=== PATIENT | male | born 1965 | race American Indian/Alaskan Native ===

== ENCOUNTER 2020-08-15 13:27 | Inpatient (IN) | payer OTHER ==
--- NOTE | 2020-08-15 14:00 | Emergency Department Report ---
HPI - General Time Seen by Provider: 08/15/20 13:49 - HPI HPI: This is a 55-year-old male who presents to the emergency department via EMS from a local store after he was witnessed to have some seizure-like activity by a bystander. At the time of my initial examination the patient appears awake, and pleasantly confused at AAO x 1 to person only. He says that the year is 2001. The patient was admitted here about 3 years ago for seizures, hyperammonemia, delirium tremens, encephalopathy. Records also show that the patient has a history of HIV. The patient admits to drinking alcohol and smoking cigarettes "sometimes", but he denies any illicit drug use. He was not given anything for his symptoms by EMS in route. The patient is a poor historian. ED Past Medical Hx - Past Medical History Hx Hypertension: Yes Hx Congestive Heart Failure: No Hx Diabetes: No Hx Seizures: Yes Hx Asthma: No Hx COPD: No Hx HIV: Yes - Surgical History Additional Surgical History: Unknown - Social History Smoking Status: Current Every Day Smoker - Medications Home Medications: Home Medications Medication Instructions Recorded Confirmed Last Taken Type Folic Acid 1 mg PO DAILY #30 tablet 08/16/20 Unknown Rx Multivitamin 1 each PO DAILY #30 tablet 08/16/20 Unknown Rx Thiamine [Vitamin B-1] 100 mg PO QDAY #30 tablet 08/16/20 Unknown Rx levETIRAcetam [Keppra TAB] 500 mg PO BID #60 tablet 08/16/20 Unknown Rx ED Review of Systems ROS: Stated complaint: SEIZURE Other details as noted in HPI Comment: Unobtainable due to pts medical conditions Physical Exam - Physical Exam Physical Exam: GENERAL: The patient is disheveled and confused. HENT: Normocephalic. Atraumatic. Patient has moist mucous membranes. EYES: Extraocular motions are intact. Pupils equal reactive to light bilaterally. NECK: Supple. Trachea is midline. CHEST/LUNGS: Clear to auscultation. There is no respiratory distress noted. HEART/CARDIOVASCULAR: Regular. There is no tachycardia. There is no murmur. ABDOMEN: Abdomen is soft, nontender. Patient has normal bowel sounds. There is no abdominal distention. SKIN: Skin is warm and dry. NEURO: The patient is awake and cooperative, but confused. AAO x1 to person, but not place or time. No facial asymmetry. Cranial nerves II through XII grossly intact. MUSCULOSKELETAL: There is no tenderness or deformity. There is no limitation range of motion. ED Course - Reevaluation(s) Reevaluation #1: 08/15/20 15:39 The patient just defecated in a urinal. He is seen talking to himself. He maddison ins confused at AAO x1. The patient's labs shows moderate hyponatremia with a sodium of 122, significant hypomagnesemia with a level of 1. He will be given a banana bag that is in normal saline to help with the hyponatremia. I have ordered 2 g of magnesium for transfusion. The patient's blood alcohol level is 0.04. With the previous witnessed seizure-like activity, and his history of alcohol dependence and previous DTs, the patient has been started on CIWA protocol. I am waiting for a CT scan of the head to be completed. ED Medical Decision Making - Lab Data Result diagrams: 08/15/20 14:14 08/15/20 14:14 Lab Results 08/15/20 08/15/20 08/15/20 Range/Units 14:14 14:14 14:14 WBC 3.3 L (4.5-11.0) K/mm3 RBC 3.83 (3.65-5.03) M/mm3 Hgb 11.9 (11.8-15.2) gm/dl Hct 33.9 L (35.5-45.6) % MCV 89 (84-94) fl MCH 31 (28-32) pg MCHC 35 H (32-34) % RDW 13.0 L (13.2-15.2) % Plt Count 137 L (140-440) K/mm3 Lymph % (Auto) 24.2 (13.4-35.0) % [place] % (Auto) 10.1 H (0.0-7.3) % Eos % (Auto) 0.6 (0.0-4.3) % Baso % (Auto) 0.9 (0.0-1.8) % Lymph # (Auto) 0.8 L (1.2-5.4) K/mm3 [place] # (Auto) 0.3 (0.0-0.8) K/mm3 Eos # (Auto) 0.0 (0.0-0.4) K/mm3 Baso # (Auto) 0.0 (0.0-0.1) K/mm3 Seg Neutrophils % 64.2 (40.0-70.0) % Seg Neutrophils # 2.1 (1.8-7.7) K/mm3 Sodium 122 L (137-145) mmol/L Potassium 3.9 (3.6-5.0) mmol/L Chloride 83.0 L (98-107) mmol/L Carbon Dioxide 18 L (22-30) mmol/L Anion Gap 25 mmol/L BUN 8 L (9-20) mg/dL Creatinine 1.0 (0.8-1.3) mg/dL Estimated GFR > 60 ml/min BUN/Creatinine Ratio 8 % Glucose 100 (75-100) mg/dL Calcium 9.4 (8.4-10.2) mg/dL Magnesium (1.7-2.3) mg/dL Total Bilirubin 0.80 (0.1-1.2) mg/dL AST 128 H (5-40) units/L ALT 64 H (7-56) units/L Alkaline Phosphatase 74 (35-129) units/L Ammonia 51.0 (25-60) umol/L Troponin T < 0.010 (0.00-0.029) ng/mL Total Protein 8.4 H (6.3-8.2) g/dL Albumin 4.4 (3.9-5) g/dL Albumin/Globulin Ratio 1.1 % TSH (0.270-4.200) mlU/mL Urine Color (Yellow) Urine Turbidity (Clear) Urine pH (5.0-7.0) Ur Specific [place] (1.003-1.030) Urine Protein (Negative) mg/dL Urine Glucose (UA) (Negative) mg/dL Urine Ketones (Negative) mg/dL Urine Blood (Negative) Urine Nitrite (Negative) Urine Bilirubin (Negative) Urine Urobilinogen (<2.0) mg/dL Ur Leukocyte Esterase (Negative) Urine WBC (Auto) (0.0-6.0) /HPF Urine RBC (Auto) (0.0-6.0) /HPF U Epithel Cells (Auto) (0-13.0) /HPF Urine Mucus /HPF Urine Opiates Screen Urine Methadone Screen Ur Barbiturates Screen Ur Phencyclidine Scrn Ur Amphetamines Screen U Benzodiazepines Scrn Urine Cocaine Screen U Marijuana (THC) Screen Drugs of Abuse Note Plasma/Serum Alcohol (0-0.07) % 08/15/20 08/15/20 08/15/20 Range/Units 14:14 14:14 14:48 WBC (4.5-11.0) K/mm3 RBC (3.65-5.03) M/mm3 Hgb (11.8-15.2) gm/dl Hct (35.5-45.6) % MCV (84-94) fl MCH (28-32) pg MCHC (32-34) % RDW (13.2-15.2) % Plt Count (140-440) K/mm3 Lymph % (Auto) (13.4-35.0) % [place] % (Auto) (0.0-7.3) % Eos % (Auto) (0.0-4.3) % Baso % (Auto) (0.0-1.8) % Lymph # (Auto) (1.2-5.4) K/mm3 [place] # (Auto) (0.0-0.8) K/mm3 Eos # (Auto) (0.0-0.4) K/mm3 Baso # (Auto) (0.0-0.1) K/mm3 Seg Neutrophils % (40.0-70.0) % Seg Neutrophils # (1.8-7.7) K/mm3 Sodium (137-145) mmol/L Potassium (3.6-5.0) mmol/L Chloride (98-107) mmol/L Carbon Dioxide (22-30) mmol/L Anion Gap mmol/L BUN (9-20) mg/dL Creatinine (0.8-1.3) mg/dL Estimated GFR ml/min BUN/Creatinine Ratio % Glucose (75-100) mg/dL Calcium (8.4-10.2) mg/dL Magnesium (1.7-2.3) mg/dL Total Bilirubin (0.1-1.2) mg/dL AST (5-40) units/L ALT (7-56) units/L Alkaline Phosphatase (35-129) units/L Ammonia (25-60) umol/L Troponin T (0.00-0.029) ng/mL Total Protein (6.3-8.2) g/dL Albumin (3.9-5) g/dL Albumin/Globulin Ratio % TSH 1.350 (0.270-4.200) mlU/mL Urine Color Yellow (Yellow) Urine Turbidity Clear (Clear) Urine pH 5.0 (5.0-7.0) Ur Specific [place] 1.015 (1.003-1.030) Urine Protein 100 mg/dl (Negative) mg/dL Urine Glucose (UA) 50 (Negative) mg/dL Urine Ketones Neg (Negative) mg/dL Urine Blood Mod (Negative) Urine Nitrite Neg (Negative) Urine Bilirubin Neg (Negative) Urine Urobilinogen 4.0 (<2.0) mg/dL Ur Leukocyte Esterase Neg (Negative) Urine WBC (Auto) 1.0 (0.0-6.0) /HPF Urine RBC (Auto) 3.0 (0.0-6.0) /HPF U Epithel Cells (Auto) < 1.0 (0-13.0) /HPF Urine Mucus Few /HPF Urine Opiates Screen Urine Methadone Screen Ur Barbiturates Screen Ur Phencyclidine Scrn Ur Amphetamines Screen U Benzodiazepines Scrn Urine Cocaine Screen U Marijuana (THC) Screen Drugs of Abuse Note Plasma/Serum Alcohol 0.04 (0-0.07) % 08/15/20 08/15/20 Range/Units 14:48 15:10 WBC (4.5-11.0) K/mm3 RBC (3.65-5.03) M/mm3 Hgb (11.8-15.2) gm/dl Hct (35.5-45.6) % MCV (84-94) fl MCH (28-32) pg MCHC (32-34) % RDW (13.2-15.2) % Plt Count (140-440) K/mm3 Lymph % (Auto) (13.4-35.0) % [place] % (Auto) (0.0-7.3) % Eos % (Auto) (0.0-4.3) % Baso % (Auto) (0.0-1.8) % Lymph # (Auto) (1.2-5.4) K/mm3 [place] # (Auto) (0.0-0.8) K/mm3 Eos # (Auto) (0.0-0.4) K/mm3 Baso # (Auto) (0.0-0.1) K/mm3 Seg Neutrophils % (40.0-70.0) % Seg Neutrophils # (1.8-7.7) K/mm3 Sodium (137-145) mmol/L Potassium (3.6-5.0) mmol/L Chloride (98-107) mmol/L Carbon Dioxide (22-30) mmol/L Anion Gap mmol/L BUN (9-20) mg/dL Creatinine (0.8-1.3) mg/dL Estimated GFR ml/min BUN/Creatinine Ratio % Glucose (75-100) mg/dL Calcium (8.4-10.2) mg/dL Magnesium 1.00 L (1.7-2.3) mg/dL Total Bilirubin (0.1-1.2) mg/dL AST (5-40) units/L ALT (7-56) units/L Alkaline Phosphatase (35-129) units/L Ammonia (25-60) umol/L Troponin T (0.00-0.029) ng/mL Total Protein (6.3-8.2) g/dL Albumin (3.9-5) g/dL Albumin/Globulin Ratio % TSH (0.270-4.200) mlU/mL Urine Color (Yellow) Urine Turbidity (Clear) Urine pH (5.0-7.0) Ur Specific [place] (1.003-1.030) Urine Protein (Negative) mg/dL Urine Glucose (UA) (Negative) mg/dL Urine Ketones (Negative) mg/dL Urine Blood (Negative) Urine Nitrite (Negative) Urine Bilirubin (Negative) Urine Urobilinogen (<2.0) mg/dL Ur Leukocyte Esterase (Negative) Urine WBC (Auto) (0.0-6.0) /HPF Urine RBC (Auto) (0.0-6.0) /HPF U Epithel Cells (Auto) (0-13.0) /HPF Urine Mucus /HPF Urine Opiates Screen Negative Urine Methadone Screen Negative Ur Barbiturates Screen Negative Ur Phencyclidine Scrn Negative Ur Amphetamines Screen Negative U Benzodiazepines Scrn Negative Urine Cocaine Screen Negative U Marijuana (THC) Screen Negative Drugs of Abuse Note Disclamer Plasma/Serum Alcohol (0-0.07) % - EKG Data -: EKG Interpreted by [place] EKG shows normal: sinus rhythm, axis, intervals, QRS complexes, ST-T waves Rate: normal - EKG Data When compared to previous EKG there are: previous EKG unavailable Interpretation: normal EKG, unchanged when compared t (01/25/18) - Radiology Data Radiology results: report reviewed CT head/brain wo con INDICATION / CLINICAL INFORMATION: 55 years Male; Altered mental status. TECHNIQUE: Routine CT head without contrast. All CT scans at this location are performed using CT dose reduction for ALARA by means of automated exposure control. COMPARISON: The study is compared to the previous CT of 01/25/2018. FINDINGS: BRAIN / INTRACRANIAL CONTENTS: The motion significantly degrades the image quality. However, there appears be continued encephalomalacia involving anterior left frontal lobe likely related to previous infarct or t rauma. There otherwise appears to be mild cerebral white matter disease most consistent with microvascular angiopathy. There is also continued mild central atrophy with associated prominence of the ventricular system. There is no gross CT evidence of acute intracranial hemorrhage or significant midline shift. ORBITS: No significant abnormality of visualized orbits. SINUSES / MASTOIDS: The visualized paranasal sinuses are pneumatized. CRANIOCERVICAL JUNCTION: There is persistent a linear lucency coursing along the vertex of the calvarium and along the left paramedian frontal lobe without interval change. ADDITIONAL FINDINGS: None. IMPRESSION: 1. The study is limited by motion. However, there is continued microvascular angiopathy and cerebral atrophy without gross CT evidence of acute intracranial hemorrhage. - Medical Decision Making This patient presents to the emergency department via EMS after he was found postictal at a local store and the store owners or a bystander witnessed some seizure-like activity. It is unknown whether the patient has a true seizure history or if the seizures are related to alcohol withdrawal, as the patient presented in a similar fashion 3 years ago. The patient is currently AAO x1 to name only. He does follow commands. Cranial nerves II through XII grossly intact. The patient is seen moving all extremities. The patient is calm and pleasant and has no current complaints. EKG did not have any morphology consistent with ST elevation myocardial infarction. Labs shows hyponatremia with a sodium level of 122, hypomagnesemia with a level of 1, and some transaminitis consistent with his alcohol use history. This patient will be signed out to my colleague, Dr. Schroeder, to follow-up on the CT scan results of the head. I did present the case to the admitting hospitalist, Dr. Chavez. Dr Schroeder will contact him or will assist with disposition depending on the CT head results. Critical Care Time: No Critical care attestation.: If time is entered above; I have spent that time in minutes in the direct care of this critically ill patient, excluding procedure time. ED Disposition Clinical Impression: Transaminitis, Hypomagnesemia, Encephalopathy, Alcohol withdrawal seizure with complication Disposition: OP ADMIT IP TO THIS HOSP Is pt being admited?: Yes Condition: Serious Time of Disposition: 15:57
[2020-08-15 14:47] LABS: Basophils % (Auto) 0.9 % (0.0-1.8); Eosinophils % (Auto) 0.6 % (0.0-4.3); Hematocrit 33.9 % (35.5-45.6); Hemoglobin 11.9 gm/dl (11.8-15.2); Lymphocytes # (Auto) 0.8 K/mm3 (1.2-5.4); Lymphocytes % (Auto) 24.2 % (13.4-35.0); Mean Corpuscular HGB Conc 35 % (32-34); Mean Corpuscular Volume 89 fl (84-94); Monocytes # (Auto) 0.3 K/mm3 (0.0-0.8); Monocytes % (Auto) 10.1 % (0.0-7.3); Platelet Count 137 K/mm3 (140-440); Red Blood Count 3.83 M/mm3 (3.65-5.03)
[2020-08-15 14:55] LABS: Bilirubin,Urine NEG (Negative); Blood,Urine MOD (Negative); Color,Urine Yellow (Yellow); Mucus,Urine FEW /HPF
[2020-08-15 14:56] LABS: Alanine Aminotransferase 64 units/L (7-56); Albumin 4.4 g/dL (3.9-5); BUN/Creatinine Ratio 8; Blood Urea Nitrogen 8 mg/dL (9-20); Calcium 9.4 mg/dL (8.4-10.2); Hemolysis Index 10
[2020-08-15 15:03] LABS: Amphetamine Screen,Urine Negative; Benzodiazepines Screen,Urine Negative; Cannabinoid Screen,Urine Negative; Cocaine Screen,Urine Negative; Methadone Screen,Urine Negative; Opiate Screen,Urine Negative
[2020-08-15] MEDS ORDERED: MAGNESIUM SULFATE 2 GM/50 ML BAG IV ONE (15:26)
[2020-08-15] MEDS ORDERED: LORazepam 2 MG/ML VIAL IV PRN ×2 (15:28)
[2020-08-15] MEDS ORDERED: THIAMINE 100 MG, FOLIC ACID 1 MG, MULTIPLE VITAMIN INJ, ADULT 10 ML in SODIUM CHLORIDE ... IV ONE (15:58)
[2020-08-15] MEDS ORDERED: LORazepam 2 MG/ML VIAL IV ONE (16:15)
[2020-08-15] MEDS ORDERED: levETIRAcetam 1000 MG/NS 0.75% 1,000 MG/100 ML BAG IV ONE (16:15)
--- NOTE | 2020-08-15 17:46 | Cat Scan Report ---
CT head/brain wo con INDICATION / CLINICAL INFORMATION: 55 years Male; Altered mental status. TECHNIQUE: Routine CT head without contrast. All CT scans at this location are performed using CT dos e reduction for ALARA by means of automated exposure control. COMPARISON: The study is compared to the previous CT of 01/25/2018. FINDINGS: BRAIN / INTRACRANIAL CONTENTS: The motion significantly degrades the image quality. However, there ap pears be continued encephalomalacia involving anterior left frontal lobe likely related to previous i nfarct or trauma. There otherwise appears to be mild cerebral white matter disease most consistent wi th microvascular angiopathy. There is also continued mild central atrophy with associated prominence of the ventricular system. There is no gross CT evidence of acute intracranial hemorrhage or signific ant midline shift. ORBITS: No significant abnormality of visualized orbits. SINUSES / MASTOIDS: The visualized paranasal sinuses are pneumatized. CRANIOCERVICAL JUNCTION: There is persistent a linear lucency coursing along the vertex of the calvar ium and along the left paramedian frontal lobe without interval change. ADDITIONAL FINDINGS: None. IMPRESSION: 1. The study is limited by motion. However, there is continued microvascular angiopathy and cerebral atrophy without gross CT evidence of acute intracranial hemorrhage. Signer Name: Juice Molina MD Signed: 08/15/2020 5:42 PM Workstation Name: [id number]
[2020-08-15] MEDS ORDERED: SODIUM CHLORIDE 0.9% 1000 ML 1,000 ML IV ONE (18:12)
[2020-08-15] MEDS ORDERED: chlordiazePOXIDE 25 MG CAP PO ONE (18:48)
--- NOTE | 2020-08-15 19:07 | Event Note ---
Date: 08/15/[address] Lucero patient is pending CT scan of head and reevaluation by hospitalist for admission. Spoke with the morning hospitalist and he says patient can be stable to go if patient is able to walk. However patient walks with that antalgic gait and had another seizure we will place patient on [facility] protocol and will admit to Dr. Zhao Spoke with Dr. Zhao Patient will be admitted to the hosptal
[2020-08-15] MEDS ORDERED: MULTIPLE VITAMIN INJ, ADULT 10 ML, THIAMINE 100 MG, FOLIC ACID 1 MG in SODIUM CHLORIDE ... IV SCH (22:00)
[2020-08-15] MEDS ORDERED: ONDANSETRON 4 MG/2 ML INJ IV PRN (22:15)
[2020-08-15] MEDS ORDERED: ACETAMINOPHEN 325 MG TAB PO PRN (22:15)
[2020-08-15] MEDS ORDERED: D5W/0.45% NACL 1,000 ML IV SCH (23:00)
[2020-08-15] MEDS ORDERED: MAGNESIUM HYDROXIDE (MOM) ORAL LIQD UDC PO PRN (23:04)
[2020-08-15] MEDS ORDERED: MORPHINE 2 MG/1 ML INJ IV PRN (23:04)
--- NOTE | 2020-08-15 23:14 | History and Physical Report ---
History of Present Illness Date of examination: 08/15/20 Date of admission: 08/15/2020 Chief complaint: Altered Mental Status History of present illness: 55-year-old male brought into the emergency room today by EMS having been found to be having some seizure-like activity at a local store by a bystander. Most of the history was gotten from the ER staff as patient appeared confused and was unable to give a very cohesive history. His only alert and oriented x1. Records however indicates that he was admitted about 3 years ago for seizure activity, hyperammonemia, delirium tremens and encephalopathy. He also has known history of HIV with unknown CD4 count. Patient has known history of alcoholic tobacco abuse. Work-up in the emergency room today reveals a sodium of 122, is magnesium of 1.0. Urinalysis and toxicology screen were unremarkable. Serum alcohol level was 0.04 CT of the head reveals microvascular angiopathy and cerebral atrophy without any gross evidence of acute intracranial hemorrhage. He was found to have unsteady gait in the ER and was placed on seizure precautions and alcohol withdrawals precautions. Patient is being admitted with altered mental status, hyponatremia, seizure-like activity and hypomagnesemia. Past History Past Medical History: HIV/AIDS, hypertension, seizures Past Surgical History: No surgical history Social history: smoking (Current daily smoker) Family history: no significant family history Medications and Allergies Allergies Allergy/AdvReac Type Severity Reaction Status Date / Time Fish Allergy Unknown Unknown Uncoded 08/24/17 16:16 Home Medications Medication Instructions Recorded Confirmed Last Taken Type No Known Home Medications [No 01/25/18 01/25/18 Unknown History Reported Home Medications] Active Meds: Active Medications Acetaminophen (Acetaminophen 325 Mg Tab) 650 mg PO Q4H PRN PRN Reason: Pain MILD(1-3)/Fever >100.5/TUBBS Enoxaparin Sodium (Enoxaparin 40 Mg/0.4 Ml Inj) 40 mg SUB-Q DAILY NORM; Protocol Stop: 08/18/20 23:59 Dextrose/Sodium Chloride (D5/0.45ns) 1,000 mls @ 100 mls/hr IV DIRECT NORM Sodium Chloride (Nacl 0.9% 1000 Ml) 1,000 mls @ 150 mls/hr IV DIRECT NORM Lorazepam (Lorazepam 2 Mg/Ml Vial) 2 mg IV Q1HR PRN PRN Reason: CIWA-Ar 8-15 Lorazepam (Lorazepam 2 Mg/Ml Vial) 4 mg IV Q1HR PRN PRN Reason: CIWA-Ar 16-25 Magnesium Hydroxide (Magnesium Hydroxide (Mom) Oral Liqd Udc) 30 ml PO Q4H PRN PRN Reason: Constipation Morphine Sulfate (Morphine 2 Mg/1 Ml Inj) 2 mg IV Q4H PRN PRN Reason: Pain, Moderate (4-6) Ondansetron HCl (Ondansetron 4 Mg/2 Ml Inj) 4 mg IV Q8H PRN PRN Reason: Nausea And Vomiting Sodium Chloride (Sodium Chloride 0.9% 10 Ml Flush Syringe) 10 ml IV BID NORM Sodium Chloride (Sodium Chloride 0.9% 10 Ml Flush Syringe) 10 ml IV PRN PRN PRN Reason: LINE FLUSH Sodium Chloride (Sodium Chloride 0.9% 10 Ml Flush Syringe) 10 ml IV BID NORM Sodium Chloride (Sodium Chloride 0.9% 10 Ml Flush Syringe) 10 ml IV PRN PRN PRN Reason: LINE FLUSH Review of Systems ROS unobtainable: due to mental status Exam - Constitutional Vitals: Temp Pulse Resp BP Pulse Ox 98.6 F 110 H 18 151/103 98 08/15/20 13:55 08/15/20 17:45 08/15/20 17:45 08/15/20 17:45 08/15/20 17:45 General appearance: Present: no acute distress, well-nourished - EENT Eyes: Present: PERRL, EOM intact ENT: hearing intact, clear oral mucosa, dentition normal - Neck Neck: Present: supple, normal ROM - Respiratory Respiratory effort: normal Respiratory: bilateral: CTA - Cardiovascular Rhythm: regular Heart Sounds: Present: S1 & S2. Absent: gallop, systolic murmur, diastolic murmur, rub, click - Extremities Extremities: no ischemia, pulses intact, pulses symmetrical, No edema, normal temperature, normal color, Full ROM Peripheral Pulses: within normal limits - Abdominal General gastrointestinal: Present: soft, non-tender, non-distended, normal bowel sounds. Absent: mass - Integumentary Integumentary: Present: clear, warm, dry. Absent: rash - Musculoskeletal Musculoskeletal: strength equal bilaterally - Psychiatric Psychiatric: cooperative, other (Confused) - Neurologic Neurologic: CNII-XII intact, moves all extremities HEART Score - HEART Score Troponin: Troponin T < 0.010 ng/mL (0.00-0.029) 08/15/20 14:14 Results - Labs CBC & Chem 7: 08/15/20 14:14 08/15/20 14:14 Labs: Abnormal lab results 08/15/20 08/15/20 08/15/20 Range/Units 14:14 14:14 15:10 WBC 3.3 L (4.5-11.0) K/mm3 Hct 33.9 L (35.5-45.6) % MCHC 35 H (32-34) % RDW 13.0 L (13.2-15.2) % Plt Count 137 L (140-440) K/mm3 [place] % (Auto) 10.1 H (0.0-7.3) % Lymph # (Auto) 0.8 L (1.2-5.4) K/mm3 Sodium 122 L (137-145) mmol/L Chloride 83.0 L (98-107) mmol/L Carbon Dioxide 18 L (22-30) mmol/L BUN 8 L (9-20) mg/dL Magnesium 1.00 L (1.7-2.3) mg/dL AST 128 H (5-40) units/L ALT 64 H (7-56) units/L Total Protein 8.4 H (6.3-8.2) g/dL Assessment and Plan - Patient Problems (1) Encephalopathy Current Visit: Yes Status: Acute Plan to address problem: Possibly secondary to multiple factors including post ictal state, hyponatremia and possible alcohol withdrawal. Will monitor mental status. Patient placed on IV fluid, alcohol withdrawal protocol and seizure precautions. (2) Hypomagnesemia Current Visit: Yes Status: Acute Plan to address problem: Possibly secondary to history of alcohol dependence. Magnesium to be repleted. Will monitor chemistry. (3) Generalized seizure Current Visit: No Status: Acute Plan to address problem: Possibly secondary to history of alcohol abuse. Patient placed on seizure precautions Placed on IV Keppra. Consult to neurology requested (4) EtOH dependence Current Visit: No Status: Chronic Qualifiers: Substance use status: in withdrawal Plan to address problem: Patient placed on alcohol withdrawal precautions Will also place on multivitamins including thiamine. (5) HIV (human immunodeficiency virus infection) Current Visit: No Status: Chronic Plan to address problem: CD4 count unknown. Will encourage follow-up with infectious disease. (6) DVT prophylaxis Current Visit: No Status: Acute Plan to address problem: Patient placed on subcutaneous Lovenox (7) Full code status Current Visit: Yes Status: Acute
[2020-08-15] MEDS ORDERED: SODIUM CHLORIDE 0.9% 1000 ML 1,000 ML IV SCH ×2 (23:15→23:30)
[2020-08-16 06:19] VITALS: BP 149/93
--- NOTE | 2020-08-16 08:14 | Discharge Summary ---
Providers - Providers Date of Admission: 08/15/20 23:04 Attending physician: ROSANGELA MORRIS MD 08/15/20 23:05 Consult to Dietitian/Nutrition [CONS] Routine Physician Instructions: Reason For Exam: Reason for Consult: Diet education Consult to Physician [CONS] Routine Comment: Consulting Provider: CHARLES ARREOLA Physician Instructions: Reason For Exam: SEIZURE DISORDER Primary care physician: ASSEMBLY LINE BRAZER Hospitalization Reason for admission: Seizures Condition: Serious Hospital course: 55-year-old male brought into the emergency room today by EMS having been found to be having some seizure-like activity at a local store by a bystander. Most of the history was gotten from the ER staff as patient appeared confused and was unable to give a very cohesive history. His only alert and oriented x1. Records however indicates that he was admitted about 3 years ago for seizure activity, hyperammonemia, delirium tremens and encephalopathy. He also has known history of HIV with unknown CD4 count. Patient has known history of alcoholic tobacco abuse. Work-up in the emergency room today reveals a sodium of 122, is magnesium of 1.0. Urinalysis and toxicology screen were unremarkable. Serum alcohol level was 0.04 CT of the head reveals microvascular angiopathy and cerebral atrophy without any gross evidence of acute intracranial hemorrhage. He was found to have unsteady gait in the ER and was placed on seizure precautions and alcohol withdrawals precautions. Patient is being admitted with altered mental status, hyponatremia, seizure-like activity and hypomagnesemia. 08/16: Called to the bedside as patient is threatening to leave AGAINST MEDICAL ADVICE on my examination he is fully dressed and eating his breakfast sitting up at the chair in the room. Cough is p.o. noted on the floor. Patient states that the cough he fell from the table. I did have extensive discussion with the patient about his medical condition his low sodium low magnesium he is seizures and the increased risk of continued recurrent seizure and the fact that this is life-threatening and could result in and or also including but not limited to permanent disability. Patient verbalized understanding tells me that Miles did not give him any seizure medications and that this was the first time examine his seizure I did tell him that he had a seizure 3 years ago he says he might have. I also explained to him that I am not sure what dose of seizure medication to give him as I do not know what he takes and what will control his seizures it appears that he has not been taking his seizure medications but he is on admission. Despite all explanation and 20 minutes spent in the room he is still adamant that he would like to leave the hospital AGAINST MEDICAL ADVICE "I walk out of here myself revealed on discharge me". Nursing staff advised as to the same. While I will attempt to write a prescription for seizure medication for this patient on vitamins I do not prophylax to this patient that this will stop his seizure I did report to him the laws in [place] no driving no driving no operating any mechanized vehicle until he is cleared by her neurologist. (1) acute metabolic encephalopathy secondary to recurrent seizures and postictal state [2] hypomagnesemia Current Visit: Yes Status: Acute Plan to address problem: Possibly secondary to history of alcohol dependence. Magnesium to be repleted. Will monitor chemistry. (3) Generalized seizure Current Visit: No Status: Acute Plan to address problem: Possibly secondary to history of alcohol abuse. Patient placed on seizure precautions Placed on IV Keppra. Consult to neurology requested (4) EtOH dependence Current Visit: No Status: Chronic Qualifiers: Substance use status: in withdrawal Plan to address problem: Patient placed on alcohol withdrawal precautions Will also place on multivitamins including thiamine. (5) HIV (human immunodeficiency virus infection) Current Visit: No Status: Chronic Plan to address problem: CD4 count unknown. Will encourage follow-up with infectious disease. Disposition: DC-07 LEFT AGAINST MED ADVICE Final Discharge Diagnosis (Prints w/discharge instructions): Acute metabolic encephalopathy secondary to recurrent seizures Time spent for discharge: 40-minute Core Measure Documentation - Palliative Care Palliative Care/ Comfort Measures: Not Applicable - Core Measures Any of the following diagnoses?: none Exam - Physical Exam Narrative exam: Limited exam VITAL SIGNS: Reviewed. GENERAL: The patient appears disheveled sitting up at the bedside close appear very with worn shoes Vital signs as documented. HEAD: No signs of head trauma. EYES: Pupils are equal. EARS: Hearing grossly intact. MOUTH: Missing dentition NECK: Observed able to turn his neck with no difficulty CHEST: No respiratory distress refused exam CARDIAC: Unable to examine VASCULAR: ABDOMEN: Nondistended MUSCULOSKELETAL: Good range of motion of all major joints. Gait not observed NEUROLOGIC EXAM: Alert and oriented x 3 No focal sensory or strength deficits. PSYCHIATRIC: Mood normal. He says that he understands although I question who truly understands the risk of life continues to make the decision that he is making but he denies any suicidal ideation or homicidal ideation. SKIN: detail exam as documented in skin assessment - Constitutional Vitals: Temp Pulse Resp BP Pulse Ox 98.2 F 84 24 149/93 96 08/16/20 01:25 08/16/20 06:01 08/16/20 06:01 08/16/20 06:01 08/16/20 06:01 Plan Activity: no driving until cleared by PCP (All present of any motorized compromise vehicle. No diving) Diet: low fat Special Instructions: other (Must quit alcohol and tobacco use) Follow up with: PRIMARY CARE, [Primary Care Provider] - 3-5 Days Forms: Accompanied Note, Work/School Release Form(ED) Prescriptions: Folic Acid 1 mg PO DAILY #30 tablet levETIRAcetam [Keppra TAB] 500 mg PO BID #60 tablet Multivitamin 1 each PO DAILY #30 tablet Thiamine [Vitamin B-1] 100 mg PO QDAY #30 tablet
[2020-08-16] MEDS ORDERED: ENOXAPARIN 40 MG/0.4 ML INJ SUB-Q SCH (10:00)
[2020-08-16] MEDS ORDERED: levETIRAcetam 500 MG in DEXTROSE 5% IN WATER 100 ML IV SCH (10:00)
[2020-08-16] MEDS ORDERED: MULTIPLE VITAMIN INJ, ADULT 10 ML, THIAMINE 100 MG, FOLIC ACID 1 MG in SODIUM CHLORIDE ... IV SCH (22:00)
[2020-08-16] MEDS ORDERED: 1: FOLIC ACID 1 MG, MULTIPLE VITAMIN INJ, ADULT 10 ML, THIAMINE 100 MG in SODIUM CHLORID IV SCH (23:45)
--- NOTE | 2020-08-19 13:02 | Electrocardiograph Report ---
[facility] Test Date: 2020-08-15 Test Time: 14:20:28 Pat Name: STEFAN BRUCE Department: Room: A264 1 Gender: M [place] Room Worker: NIRANJAN : 1965 Requested By: JUWAN BYNUM Order Number: [id number] Reading MD: Pawel Otoole Measurements Intervals [place] Rate: 95 P: 36 [place]: 162 QRS: 18 QRSD: 85 T: 6 QT: 357 QTc: 449 Interpretive Statements Sinus rhythm No previous ECG available for comparison Electronically Signed On 08-19-2020 13:02:48 EDT by Pawel Otoole
== END 2020-08-16 08:18 | disposition left against medical advice (07) | DRG 100 ==
LOC: ED 13:27 → IMCU 23:04
PROVIDERS: ADMIT Internal Medicine Geriatric Medicine; ATTEND Internal Medicine
DX: G40.909 Epilepsy, unspecified, not intractable, without status epilepticus (principal); G93.41 Metabolic encephalopathy; F10.20 Alcohol dependence, uncomplicated; E83.42 Hypomagnesemia; Y90.9 Presence of alcohol in blood, level not specified; Z53.29 Procedure and treatment not carried out because of patient's decision for other reasons; F17.210 Nicotine dependence, cigarettes, uncomplicated; I10 Essential (primary) hypertension; Z79.899 Other long term (current) drug therapy
CPT/HCPCS: 36415; 70450; 80053; 80307; 80320; 81001; 82140; 83735; 84443; 84484; 85025; 93005; G0378; G0480; J1953; J2060; J3411; J3475; J7030